=== PATIENT | male | born 1990 | race Caucasian/White ===

== ENCOUNTER 2021-01-17 11:21 | Emergency (ER) | payer BC, OTHER ==
[~2021-01-17] VITALS: Ht 175.3 cm; Wt 86.0 kg
[2021-01-17 12:34] VITALS: BP 121/78
--- NOTE | 2021-01-17 12:35 | NUR ---
TASK RN: PT BACK FROM CT IN STABLE CONDITION. PT RESTING ON GURNEY. NADN. PIERRE.
--- NOTE | 2021-01-17 13:13 | NUR ---
DC home with instruct, pt verbalizes understanding to return to ER if worse or concerns. VSS
== END 2021-01-17 13:18 | disposition home or self-care (01) ==
LOC: ED 11:57
DX: S06.0X0A Concussion without loss of consciousness, initial encounter (principal); M54.2 Cervicalgia; R94.31 Abnormal electrocardiogram [ECG] [EKG]; W22.8XXA Striking against or struck by other objects, initial encounter; Y93.89 Activity, other specified; Y92.39 Other specified sports and athletic area as the place of occurrence of the external cause; Y99.8 Other external cause status
CPT/HCPCS: 70450; 93005; 99284